=== PATIENT | female | born 1985 | race African-American/Black ===

== ENCOUNTER 2018-05-27 00:33 | Emergency (ER) | payer MEDICAID ==
[2018-05-27] MEDS ORDERED: LIDOCAINE 1%/EPINEPHRINE INJ 20 ML VIAL ONE (00:40)
[2018-05-27] MEDS ORDERED: LIDOCAINE 1%/EPINEPHRINE INJ 20 ML VIAL INJ ONE (01:19)
[2018-05-27] MEDS ORDERED: MORPHINE SULFATE IR 15 MG TABLET PO ONE (01:23)
[2018-05-27] MEDS ORDERED: ACETAMINOPHEN 325 MG TABLET PO ONE (01:23)
[2018-05-27] MEDS ORDERED: IBUPROFEN 600 MG TABLET PO ONE (01:23)
[2018-05-27] MEDS ORDERED: DIPH/PERTUSS(ACELL)/TETANUS VAC/PF 0.5 ML SYR (>=10YO) IM ONE (01:25)
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
[2018-05-27 02:30] VITALS: BP 132/68
== END 2018-05-27 02:34 | disposition home or self-care (01) ==
LOC: EDBD → ER 00:33
DX: S51.811A Laceration without foreign body of right forearm, initial encounter (principal); X99.9XXA Assault by unspecified sharp object, initial encounter; Z23 Encounter for immunization
CPT/HCPCS: 99283; 90471; 90715; 12002; J3490 ×3

== ENCOUNTER 2018-05-30 11:07 | Emergency (ER) | payer MEDICAID ==
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
[2018-05-30 12:06] VITALS: BP 132/70
== END 2018-05-30 12:05 | disposition home or self-care (01) ==
LOC: ER 11:07
DX: S61.511D Laceration without foreign body of right wrist, subsequent encounter (principal); W45.8XXD Other foreign body or object entering through skin, subsequent encounter; F17.210 Nicotine dependence, cigarettes, uncomplicated; Z71.6 Tobacco abuse counseling
CPT/HCPCS: 99283; 99406

== ENCOUNTER 2018-09-22 08:49 | Emergency (ER) | payer MEDICAID ==
--- NOTE | 2018-09-22 10:36 | RADIOLOGY REPORT (SQ) ---
EXAM DESCRIPTION: U/S EXTREMITY NONVASCULAR LTD COMPLETED DATE/TIME: 09/22/2018 10:04 am REASON FOR STUDY: Lump on right arm COMPARISON: None. TECHNIQUE: Dynamic and static grayscale images acquired of the localized site of clinical concern an d recorded on PACS. Additional selected color Doppler and spectral images recorded. SITE OF CONCERN: Right arm LIMITATIONS: None. FINDINGS: SKIN AND SUBCUTANEOUS TISSUES: There is a hypoechoic subcutaneous area with no capsule. M easures 0.9 x 1.8 x 0.7 cm. Echogenic linear focus suggesting possible foreign body. DEEP SOFT TISSUES/MUSCLES: No masses. No fluid collections. No edema. VASCULAR: No increased or decreased vascularity. No occlusions. OTHER: No other significant finding. IMPRESSION: Subcutaneous seroma/hematoma/abscess likely containing foreign body. TECHNICAL DOCUMENTATION: JOB ID: [id number] [employer]- All Rights Reserved Reading location - IP/workstation name: [email or web address]
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
[2018-09-22 11:11] VITALS: BP 113/61
== END 2018-09-22 11:11 | disposition home or self-care (01) ==
LOC: ER 08:49
DX: R22.31 Localized swelling, mass and lump, right upper limb (principal); F17.210 Nicotine dependence, cigarettes, uncomplicated
CPT/HCPCS: 76882; 99283; 99406

== ENCOUNTER 2019-04-16 11:45 | Emergency (ER) | payer MEDICAID ==
[2019-04-16] MEDS ORDERED: LIDOCAINE 1% INJ-PF (10 MG/ML) 30 ML SDV INJ ONE (12:28)
[2019-04-16] MEDS ORDERED: CEFTRIAXONE INJ 1000 MG VIAL IM ONE (12:28)
--- NOTE | 2019-04-16 12:34 | ER Document Report ---
HPI - HPI Time Seen by Provider: 04/16/19 12:10 Pain Level: 3 Notes: -year-old female resents the ED for evaluation of a cyst to the left orbital region that started approximately 2 weeks ago, patient has been applying warm compress to area a couple times has noticed some reduction, patient states she did have a cyst below her left eye approximately a month ago, applied heat resolved. Not tried any [id number] medications, has not seen a medical provider for this issue or an eye doctor for this issue. Denies fevers, chills, chest pain,palpitations, shortness of breath, dyspnea, nausea, vomiting, diarrhea, abdominal pain, hematuria,blurred vision, double vision, loss of vision, speech changes, LH, dizziness, syncope, headaches, wheezing, ST, URI, neck pain, weakness, bowel or bladder dysfunction, saddle anesthesia, numbness or tingling in bilateral upper or lower extremities equally, muscle paralysis, weakness in bilateral upper or lower extremities equally or rash. - EENT EENT: REPORTS: Eye problems - cyst left eye - REPRODUCTIVE Reproductive: DENIES: : Past Medical History - General Information source: Patient - Social History Smoking Status: Current Every Day Smoker Frequency of alcohol use: Social Drug Abuse: None Family History: Reviewed & Not Pertinent Patient has suicidal ideation: No Patient has homicidal ideation: No Pulmonary Medical History: Reports: Hx Bronchitis, Hx Pneumonia Renal/ Medical History: Denies: Hx Peritoneal Dialysis Musculoskeletal Medical History: Reports Hx Musculoskeletal Trauma - shoulder injury Skin Medical History: Reports Hx MRSA Psychiatric Medical History: Reports: Hx Depression Past Surgical History: Reports: Hx Abdominal Surgery - abdo hernia, Hx Breast Surgery - lymph node removed from breast, Hx Umbilical Hernia - AGE 12 Y.O. - Immunizations Immunizations up to date: Yes Hx Diphtheria, Pertussis, Tetanus Vaccination: Yes - 05/18 Hx Pneumococcal Vaccination: 10/01/00 Vertical Provider Document - CONSTITUTIONAL Agree With Documented VS: Yes Notes: PHYSICAL EXAMINATION: GENERAL: Well-appearing, well-nourished and in no acute distress. HEAD: Atraumatic, normocephalic. EYES: Pupils equal round and reactive to light, extraocular movements intact, conjunctiva are normal. PERRLA. ENT: Nares patent, oropharynx clear without exudates. Moist mucous membranes. NECK: Normal range of motion, supple without lymphadenopathy LUNGS: Breath sounds clear to auscultation bilaterally and equal. No wheezes rales or rhonchi. HEART: Regular rate and rhythm without murmurs ABDOMEN: Soft, nontender, nondistended abdomen. No guarding, no rebound. No masses appreciated. Musculoskeletal: Normal range of motion, no pitting or edema. No cyanosis. NEUROLOGICAL: Cranial nerves grossly intact. Normal speech, normal gait. Normal sensory, motor exams PSYCH: Normal mood, normal affect. SKIN: Warm, Dry, normal turgor, no rashes or lesions noted. Left lateral aspect orbital area with induration, scant erythema approximately 0.5 cm x 0.5 cm without surrounding erythema induration phlebitis. - INFECTION CONTROL TRAVEL OUTSIDE OF THE [place] IN LAST 30 DAYS: No Course - Re-evaluation Re-evalutation: 04/16/19 13:17 33-year-old female afebrile vital stable no distress, for evaluation of cyst on face, denies any blurred vision double vision loss of vision, visual acuity is normal, normal eye exam, 0.5 cm x 0.5 cm to lateral aspect of eye. Patient given 1 g Rocephin IM and started on oral clindamycin, referral given to quality process auditor for follow-up tomorrow. Advised to apply heat 20 minutes on 20 minutes off several times a day. after performing a Medical Screening Examination, I estimate there is LOW risk for a RETAINED CORNEAL or LID FOREIGN BODY, DEEP SPACE INFECTION (e.g., ORBITAL CELLULITIS OR ABSCESS), ACUTE GLAUCOMA, PENETRATING GLOBE INJURY, RETINAL DETACHMENT, or MENINGITIS thus I consider the discharge disposition reasonable. I have reevaluated this patient multiple times and no significant life threatening changes are noted. Also, there is no evidence or peritonitis, sepsis, or toxicity. The patient and I have discussed the diagnosis and risks, and we agree with discharging home with outpatient follow-up with the understanding that symptoms and presentations can change. We also discussed returning to the Emergency Department immediately if new or worsening symptoms occur. We have discussed the symptoms which are most concerning (e.g., changing or worsening pain, vision changes, neck stiffness or fever) that necessitate immediate return. Discharge - Discharge Clinical Impression: Cellulitis, Cyst of face Condition: Stable Disposition: HOME, SELF-CARE Instructions: Cellulitis ([facility]) Additional Instructions: Cellulitis You have an infection of your skin and underlying soft tissues called cellulitis. This is due to bacteria, which can enter through any break in the skin, or even through an irritated hair follicle. Untreated, cellulitis will usually worsen. Antibiotics are required. Usually, warm packs or warm soaks, and elevation of the infected area are recommended. You should start getting better within 24 to 36 hours. Most infections respond quickly to the right medication. Follow-up care is important, however, to check for abscess (boil) formation, unsuspected foreign body, or resistant infection. If you develop fever, chills, or if the area of infection is becoming rapidly more swollen or painful, call the doctor at once. Follow up with quality process auditor tomorrow. you were given 1g rocephin today and started on clindamycin today. apply heat 20 minutes and 20 minutes off several times a day. Eye Injury You have been evaluated for an eye injury or problem. At this time no serious, vision-threatening problem could be found. If an infection is suspected or to prevent an infection, antibiotics drops may be prescribed. Pain medication may be required. Don't drive or operate machinery until you have the use of both your eyes. Call the doctor or return at once if you develop severe pain, decreasing vision, eye swelling, or pus drainage. [facility] Address: [address] [place] [address] , [place] [address] Return immediately for any new or worsening symptoms. Follow up with primary care provider, call tomorrow to make followup appointment. Prescriptions: Clindamycin HCl 300 mg PO Q6H #28 capsule Fluconazole [Diflucan] 150 mg PO ONCE PRN #1 tablet PRN Reason: Forms: Return to Work Referrals: MICHA BOOKER DO [ACTIVE STAFF] - Follow up tomorrow XU GONSALEZ MD [ACTIVE STAFF] - Follow up in 3-5 days
== END 2019-04-16 13:03 | disposition home or self-care (01) ==
LOC: ER 11:45
DX: L03.211 Cellulitis of face (principal); L72.8 Other follicular cysts of the skin and subcutaneous tissue; F17.200 Nicotine dependence, unspecified, uncomplicated; Z86.14 Personal history of Methicillin resistant Staphylococcus aureus infection
CPT/HCPCS: 99283; 96372; J3490; J0696

== ENCOUNTER 2019-11-11 16:27 | Emergency (ER) | payer MEDICAID ==
[2019-11-11] MEDS ORDERED: IPRATROPIUM/ALBUTEROL 0.5-2.5 MG/3 ML AMPUL NEB ONE (17:51)
--- NOTE | 2019-11-11 17:55 | ER Document Report ---
HPI - HPI Patient complains to provider of: cough, body chills Time Seen by Provider: 11/11/19 17:44 Onset: Other - sunday Onset/Duration: Sudden Quality of pain: Achy Pain Level: 3 Context: 34-year-old female with history of bronchitis pneumonia presents to the emergency department with runny nose sneezing that started on Sunday. She reports symptoms continued on Sunday. On Sunday she started having body aches chills. Reports chest feels tight. Denies fever and diarrhea and vomiting. Reports children were recently diagnosed with the flu. Patient reports she is eating and drinking voiding and bowel movement as normal although she cannot eat heavy foods. She reports meat loaf pizza things like that make her nauseated. She is able to drink soups. Patient reports she usually smokes a pack cigarettes a day but has decreased recently. Associated Symptoms: Body/muscle aches, Nonproductive cough Exacerbated by: Denies Relieved by: Denies Similar symptoms previously: No Recently seen / treated by doctor: No - CONSTITUTIONAL Constitutional: REPORTS: Fever, Chills - EENT EENT: REPORTS: Sore Throat - RESPIRATORY Respiratory: REPORTS: Coughing - REPRODUCTIVE Reproductive: DENIES: : Past Medical History - General Information source: Patient - Social History Smoking Status: Current Every Day Smoker Cigarette use (# per day): Yes Chew tobacco use (# tins/day): No Frequency of alcohol use: Occasional Drug Abuse: None Lives with: Family Family History: Reviewed & Not Pertinent Patient has suicidal ideation: No Patient has homicidal ideation: No Pulmonary Medical History: Reports: Hx Bronchitis, Hx Pneumonia Renal/ Medical History: Denies: Hx Peritoneal Dialysis Musculoskeletal Medical History: Reports Hx Musculoskeletal Trauma - shoulder injury Skin Medical History: Reports Hx MRSA Psychiatric Medical History: Reports: Hx Depression Past Surgical History: Reports: Hx Abdominal Surgery - abdo hernia, Hx Breast Surgery - lymph node removed from breast, Hx Umbilical Hernia - AGE 12 Y.O. - Immunizations Immunizations up to date: Yes Hx Diphtheria, Pertussis, Tetanus Vaccination: Yes - 05/18 Hx Pneumococcal Vaccination: 10/01/00 Vertical Provider Document - CONSTITUTIONAL Agree With Documented VS: Yes Exam Limitations: No Limitations General Appearance: WD/WN, No Apparent Distress - INFECTION CONTROL TRAVEL OUTSIDE OF THE [place] IN LAST 30 DAYS: No - HEENT HEENT: Atraumatic, Normal ENT Exam, Normocephalic. negative: Conjuctival Injection, Pharyngeal Erythema, Tympanic Membrane Red, Tympanic Membrane Bulging - NECK Neck: Normal Inspection, Supple. negative: Lymphadenopathy-Left, Lymphadenopathy-Right - RESPIRATORY Respiratory: Breath Sounds Normal, No Respiratory Distress - CARDIOVASCULAR Cardiovascular: Regular Rate, Regular Rhythm - GI/ABDOMEN Gastrointestinal: Abdomen Non-Tender - MUSCULOSKELETAL/EXTREMETIES Musculoskeletal/Extremeties: MABASILIA, FROM - NEURO Level of Consciousness: Awake, Alert, Appropriate Motor/Sensory: No Motor Deficit - DERM Integumentary: Warm, Dry, No Rash Course - Re-evaluation Re-evalutation: 11/11/19 18:40 Chest X-Ray 11/11/19 17:51 IMPRESSION: NO ACUTE RADIOGRAPHIC FINDING IN THE CHEST. 11/11/19 19:01 Chest x-ray negative. Patient reports she feels better after the breathing treatment. She does have an inhaler at home. She was instructed to use inhaler as prescribed. Good handwashing, push fluids. Monitor her breathing. Quit smoking she was also instructed to return for concerns. She verbalized understanding to all instructions. Respiratory rate even unlabored no retractions no wheeze. - Vital Signs Vital signs: Temp Pulse Resp BP Pulse Ox 99.3 F 99 20 133/66 H 99 11/11/19 17:02 11/11/19 17:02 11/11/19 17:02 11/11/19 17:02 11/11/19 17:02 - Diagnostic Test Radiology reviewed: Image reviewed, Reports reviewed Discharge - Discharge Clinical Impression: Flu-like symptoms Condition: Stable Disposition: HOME, SELF-CARE Instructions: Acetaminophen Additional Instructions: *You have been evaluated for flulike symptoms *Your chest x-ray was negative for pneumonia *Increase fluid intake as discussed *Monitor your temperature, take Tylenol as indicated *Follow up with a primary care provider within 1 week for recheck *Return to ED for worsening condition, changes, needs Forms: Smoking Cessation Education
--- NOTE | 2019-11-11 18:10 | RADIOLOGY REPORT (SQ) ---
EXAM DESCRIPTION: CHEST 2 VIEWS COMPLETED DATE/TIME: 11/11/2019 6:04 pm REASON FOR STUDY: cough COMPARISON: 03/04/2017 EXAM PARAMETERS: NUMBER OF VIEWS: two views TECHNIQUE: Digital Frontal and Lateral radiographic views of the chest acquired. RADIATION DOSE: NA LIMITATIONS: none FINDINGS: LUNGS AND PLEURA: No opacities, masses or pneumothorax. No pleural effusion. MEDIASTINUM AND HILAR STRUCTURES: No masses or contour abnormalities. HEART AND VASCULAR STRUCTURES: Heart normal size. No evidence for failure. BONES: No acute findings. HARDWARE: None in the chest. OTHER: No other significant finding. IMPRESSION: NO ACUTE RADIOGRAPHIC FINDING IN THE CHEST. TECHNICAL DOCUMENTATION: JOB ID: [id number] 2010 [employer]- All Rights Reserved Reading location - IP/workstation name: [email or web address]
[2019-11-11 19:27] VITALS: BP 109/65
== END 2019-11-11 19:38 | disposition home or self-care (01) ==
LOC: ER 16:27
DX: R05 Cough (principal); R09.89 Other specified symptoms and signs involving the circulatory and respiratory systems; R06.7 Sneezing; R07.89 Other chest pain; M79.10 Myalgia, unspecified site; R50.9 Fever, unspecified; J02.9 Acute pharyngitis, unspecified; F17.210 Nicotine dependence, cigarettes, uncomplicated; Z20.828 Contact with and (suspected) exposure to other viral communicable diseases; Z87.01 Personal history of pneumonia (recurrent)
CPT/HCPCS: 71046; 94640; 99283; J7620

== ENCOUNTER 2019-12-19 21:53 | Emergency (ER) | payer MEDICAID, OTHER ==
[2019-12-19] MEDS ORDERED: PROMETHAZINE HCL 25 MG TABLET PO ONE (23:45)
[2019-12-19] MEDS ORDERED: TETANUS/DIPHTHERIA TOX-ADULT 0.5 ML SYR (>=7YO) IM ONE (23:45)
[2019-12-19] MEDS ORDERED: METRONIDAZOLE 500 MG TABLET PO ONE (23:45)
[2019-12-19] MEDS ORDERED: LIDOCAINE 1% INJ-PF (10 MG/ML) 30 ML SDV INJ ONE (23:45)
[2019-12-19] MEDS ORDERED: AZITHROMYCIN 250 MG TABLET PO ONE (23:45)
[2019-12-19] MEDS ORDERED: CEFTRIAXONE INJ 250 MG VIAL IM ONE (23:45)
[2019-12-20 00:56] LABS: ABSOLUTE EOSINOPHILS # (AUTO) 0.1 10^3/uL (0.0-0.6); ABSOLUTE MONOCYTES (AUTO) 0.4 10^3/uL (0.1-1.4); ABSOLUTE NEUT (AUTO) 3.7 10^3/uL (1.7-8.2); BASOPHILS % (AUTO) 0.5 % (0-2); EOSINOPHILS % (AUTO) 0.8 % (0-6); HEMATOCRIT 40.7 % (36.0-47.0); HEMOGLOBIN 13.5 g/dL (12.0-15.5); LYMPHOCYTES % (AUTO) 32.8 % (13-45); MEAN CORPUSCULAR HEMOGLOBIN 28.2 pg (27.0-33.4); MEAN CORPUSCULAR HGB CONC 33.3 g/dL (32.0-36.0); MEAN CORPUSCULAR VOLUME 85 fl (80-97); MONOCYTES % (AUTO) 6.6 % (3-13); PLATELET COUNT 455 10^3/uL (150-450); RED BLOOD COUNT 4.79 10^6/uL (3.72-5.28); RED CELL DISTRIBUTION WIDTH 14.7 % (11.5-14.0); SEGMENTED NEUTROPHILS % (AUTO) 59.3 % (42-78); TOTAL CELLS COUNTED % (AUTO) 100 %; WHITE BLOOD COUNT 6.2 10^3/uL (4.0-10.5)
[2019-12-20 01:03] LABS: APPEARANCE,URINE CLEAR; BILIRUBIN,URINE NEGATIVE (NEGATIVE); COLOR,URINE YELLOW; GLUCOSE, URINE NEGATIVE (NEGATIVE); KETONES,URINE NEGATIVE (NEGATIVE); LEUKOCYTE ESTERASE,URINE NEGATIVE (NEGATIVE); NITRITE,URINE NEGATIVE (NEGATIVE); PROTEIN,URINE NEGATIVE (NEGATIVE); UROBILINOGEN,URINE NEGATIVE mg/dL (<2.0)
[2019-12-20 01:24] LABS: ALBUMIN 4.9 g/dL (3.5-5.0); ALKALINE PHOSPHATASE 56 U/L (38-126); ANION GAP 8 (5-19); ASPARTATE AMINO TRANSFERASE 23 U/L (14-36); BILIRUBIN,TOTAL 0.6 mg/dL (0.2-1.3); BLOOD UREA NITROGEN 8 mg/dL (7-20); CALCIUM 9.8 mg/dL (8.4-10.2); CARBON DIOXIDE 28 mmol/L (22-30); CHLORIDE 104 mmol/L (98-107); GLUCOSE 98 mg/dL (75-110); POTASSIUM 4.2 mmol/L (3.6-5.0); TOTAL PROTEIN 8.6 g/dL (6.3-8.2)
[2019-12-20] MEDS ORDERED: PROMETHAZINE HCL 25 MG TABLET ONE (01:59)
[2019-12-20] MEDS ORDERED: LIDOCAINE 1% INJ-PF (10 MG/ML) 30 ML SDV ONE (02:00)
[2019-12-20] MEDS ORDERED: AZITHROMYCIN 250 MG TABLET ONE (02:00)
[2019-12-20] MEDS ORDERED: CEFTRIAXONE INJ 1000 MG VIAL ONE (02:00)
[2019-12-20] MEDS ORDERED: METRONIDAZOLE 500 MG TABLET PO ONE (02:01)
[2019-12-20] MEDS ORDERED: TETANUS/DIPHTHERIA TOX-ADULT 0.5 ML SYR (>=7YO) IM ONE (02:02)
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
[2019-12-20] MEDS ORDERED: EMTRICITABINE/TENOFOVIR 200-300 MG TAB (3 TAB/ER DISP) PO PRN (02:14)
[2019-12-20] MEDS ORDERED: RALTEGRAVIR 400 MG TAB (6 TAB/ER DISP) PO PRN (02:14)
[2019-12-20 02:22] LABS: BACTERIA (WET MOUNT) 3+ BACTERIA SEEN; EPITHELIALS (WET MOUNT) 3+ EPITHELIALS SEEN; RBCS (WET MOUNT) NO RBCS SEEN; T.VAGINALIS (WET MOUNT) NO TRICHOMONAS SEEN; WBCS (WET MOUNT) 1+ WBCS SEEN; YEAST (WET MOUNT) NO YEAST SEEN
[2019-12-20] MEDS ORDERED: ONDANSETRON 4 MG TAB.RAPDIS PO ONE (02:49)
[2019-12-20 04:41] VITALS: BP 119/71
[2019-12-21 07:36] LABS: HEPATITS B SURFACE ANTIGEN Negative (Negative)
[2019-12-21 13:10] LABS: HEPATITIS C VIRUS ANTIBODY <0.1 s/co ratio (0.0-0.9)
== END 2019-12-20 04:40 | disposition home or self-care (01) ==
LOC: ER 21:53
DX: T76.21XA Adult sexual abuse, suspected, initial encounter (principal); X58.XXXA Exposure to other specified factors, initial encounter; F17.200 Nicotine dependence, unspecified, uncomplicated; Z20.6 Contact with and (suspected) exposure to human immunodeficiency virus [HIV]; Z23 Encounter for immunization
CPT/HCPCS: 99284; 96372; 90471; 36415; 87210; 85025; 81025; 86592; 80053; 81001; 86701; 80074; 90714; Q0144; S0119; J3490 ×3; J0696

== ENCOUNTER 2020-03-05 11:58 | Emergency (ER) | payer MEDICAID, OTHER ==
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
--- NOTE | 2020-03-05 13:58 | RADIOLOGY REPORT (SQ) ---
EXAM DESCRIPTION: CHEST SINGLE VIEW IMAGES COMPLETED DATE/TIME: 03/05/2020 1:43 pm REASON FOR STUDY: sob COMPARISON: PA and lateral views of the chest from 11/11/2019. EXAM PARAMETERS: NUMBER OF VIEWS: One view. TECHNIQUE: An AP view of the chest was obtained. RADIATION DOSE: NA LIMITATIONS: None. FINDINGS: LUNGS AND PLEURA: No consolidation, pleural effusion or pneumothorax. MEDIASTINUM AND HILAR STRUCTURES: No mediastinal or hilar contour abnormality. HEART AND VASCULAR STRUCTURES: The cardiac silhouette and pulmonary vasculature are within normal goins its. BONES: No acute findings. HARDWARE: None in the chest. OTHER: No other finding. IMPRESSION: No acute cardiopulmonary process. TECHNICAL DOCUMENTATION: JOB ID: [id number] 2010 [employer]- All Rights Reserved Reading location - IP/workstation name: [email or web address]
[2020-03-05 18:53] VITALS: BP 121/67
== END 2020-03-05 18:44 | disposition home or self-care (01) ==
LOC: ER 11:58
DX: R06.02 Shortness of breath (principal); R42 Dizziness and giddiness; R05 Cough; Z87.01 Personal history of pneumonia (recurrent); Z77.098 Contact with and (suspected) exposure to other hazardous, chiefly nonmedicinal, chemicals
CPT/HCPCS: 71045; 99284

== ENCOUNTER 2020-06-17 21:43 | Emergency (ER) | payer MEDICAID ==
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
--- NOTE | 2020-06-18 01:16 | RADIOLOGY REPORT (SQ) ---
Ultrasound of the pelvis: 06/18/2020 12:13 AM CDT HISTORY: 35-year-old patient with vaginal bleeding. TECHNIQUE: Multiple grayscale and color Doppler images of the pelvis were obtained transabdominally. COMPARISON: None available FINDINGS: The uterus measures 8.0 x 5.0 x 4.4 cm. The endometrium measures 8-9 mm in thickness. No myometrial mass is seen. The right ovary measures 4.7 x 3.0 x 3.4 cm. The left ovary measures 3.6 x 2.0 x 2.3 cm. There is a probable physiologic cysts within the right ovary measuring up to 3.8 cm. Normal arterial waveforms were obtained from both ovaries. No free intraperitoneal fluid is seen within the posterior cul-de-sac. IMPRESSION: No sonographic abnormality is seen within the pelvis.
[2020-06-18 03:11] LABS: ABSOLUTE EOSINOPHILS # (AUTO) 0.1 10^3/uL (0.0-0.6); ABSOLUTE MONOCYTES (AUTO) 0.4 10^3/uL (0.1-1.4); ABSOLUTE NEUT (AUTO) 2.8 10^3/uL (1.7-8.2); BASOPHILS % (AUTO) 0.7 % (0-2); EOSINOPHILS % (AUTO) 1.2 % (0-6); HEMATOCRIT 37.2 % (36.0-47.0); HEMOGLOBIN 12.6 g/dL (12.0-15.5); MEAN CORPUSCULAR HEMOGLOBIN 28.6 pg (27.0-33.4); MEAN CORPUSCULAR HGB CONC 33.9 g/dL (32.0-36.0); MEAN CORPUSCULAR VOLUME 84 fl (80-97); PLATELET COUNT 350 10^3/uL (150-450); RED BLOOD COUNT 4.41 10^6/uL (3.72-5.28); RED CELL DISTRIBUTION WIDTH 14.7 % (11.5-14.0); SEGMENTED NEUTROPHILS % (AUTO) 44.1 % (42-78); TOTAL CELLS COUNTED % (AUTO) 100 %; WHITE BLOOD COUNT 6.4 10^3/uL (4.0-10.5)
[2020-06-18 03:25] LABS: ALBUMIN 4.4 g/dL (3.5-5.0); ALKALINE PHOSPHATASE 41 U/L (38-126); ANION GAP 9 (5-19); ASPARTATE AMINO TRANSFERASE 23 U/L (14-36); BILIRUBIN,DIRECT 0.3 mg/dL (0.0-0.4); BILIRUBIN,TOTAL 0.4 mg/dL (0.2-1.3); BLOOD UREA NITROGEN 9 mg/dL (7-20); CALCIUM 9.4 mg/dL (8.4-10.2); CARBON DIOXIDE 22 mmol/L (22-30); CHLORIDE 106 mmol/L (98-107); GLUCOSE 141 mg/dL (75-110); POTASSIUM 3.9 mmol/L (3.6-5.0); TOTAL PROTEIN 7.4 g/dL (6.3-8.2)
[2020-06-18 03:29] LABS: APPEARANCE,URINE CLEAR; BILIRUBIN,URINE NEGATIVE (NEGATIVE); COLOR,URINE YELLOW; GLUCOSE, URINE NEGATIVE (NEGATIVE); KETONES,URINE NEGATIVE (NEGATIVE); LEUKOCYTE ESTERASE,URINE NEGATIVE (NEGATIVE); NITRITE,URINE NEGATIVE (NEGATIVE); PROTEIN,URINE NEGATIVE (NEGATIVE); URINE SPECIFIC GRAVITY 1.015; UROBILINOGEN,URINE NEGATIVE mg/dL (<2.0)
[2020-06-18] MEDS ORDERED: KETOROLAC TROMETHAMINE 60 MG/2 ML SDV IM ONE (08:23)
--- NOTE | 2020-06-18 08:55 | ER Document Report ---
Entered by VIKA BOJORQUEZ SCRIBE 06/18/20 0752 Acting as scribe for:GUILLERMO GARDNER MD ED General - General Chief Complaint: Pelvic Pain Stated Complaint: PELVIC PAIN Time Seen by Provider: 06/17/20 22:18 Mode of Arrival: Ambulatory Information source: Patient Notes: This 35 year old female patient presents to the emergency department today with complaints of vaginal discomfort. Patient states she had her Nexplanon changed around x4 months ago [facility] and reports intermittent clotting or bleeding since. Patient reports a white vaginal discharge x2 days ago and denies any fever or chills. Patient states her last appointment at the [facility] was x1 month ago and was told to visit the ED if she continued to have pain or bleeding. TRAVEL OUTSIDE OF THE [place] IN LAST 30 DAYS: No - Related Data Allergies/Adverse Reactions: No Known Allergies Allergy (Verified 11/11/19 17:42) Past Medical History - General Information source: Patient - Social History Smoking Status: Current Every Day Smoker Cigarette use (# per day): Yes Frequency of alcohol use: None Family History: Reviewed & Not Pertinent Patient has homicidal ideation: No Pulmonary Medical History: Reports: Hx Bronchitis, Hx Pneumonia Musculoskeletal Medical History: Reports Hx Musculoskeletal Trauma - shoulder injury Skin Medical History: Reports Hx MRSA Psychiatric Medical History: Reports: Hx Depression Past Surgical History: Reports: Hx Abdominal Surgery - abd hernia, Hx Breast Surgery - lymph node removed from breast, Hx Umbilical Hernia - AGE 12 Y.O. - Immunizations Immunizations up to date: Yes Hx Diphtheria, Pertussis, Tetanus Vaccination: Yes - 05/18 Hx Pneumococcal Vaccination: 10/01/00 Review of Systems - Review of Systems Constitutional: See HPI. denies: Chills, Fever EENT: No symptoms reported Cardiovascular: No symptoms reported Respiratory: No symptoms reported Gastrointestinal: No symptoms reported Genitourinary: No symptoms reported Female Genitourinary: See HPI, Vaginal discharge, Vaginal bleeding, Other - vaginal pain Musculoskeletal: No symptoms reported Skin: No symptoms reported Hematologic/Lymphatic: No symptoms reported Neurological/Psychological: No symptoms reported -: Yes All other systems reviewed and negative Physical Exam - Vital signs Vitals: Temp Pulse Resp BP Pulse Ox 98.8 F 98 18 130/69 H 99 06/17/20 22:00 06/17/20 22:00 06/17/20 22:00 06/17/20 22:00 06/17/20 22:00 - General General appearance: Appears well, Alert - HEENT Head: Normocephalic, Atraumatic Eyes: Normal Pupils: PERRL - Respiratory Respiratory status: No respiratory distress Chest status: Nontender Breath sounds: Normal Chest palpation: Normal - Cardiovascular Rhythm: Regular Heart sounds: Normal auscultation Murmur: No - Abdominal Inspection: Obese Distension: No distension Bowel sounds: Normal Tenderness: Nontender - Extremities General upper extremity: Normal inspection. No: Edema General lower extremity: Normal inspection. No: Edema - Neurological Neuro grossly intact: Yes Cognition: Normal Orientation: AAOx4 Eddie Coma Scale Eye Opening: Spontaneous Eddie Coma Scale Verbal: Oriented Eddie Coma Scale Motor: Obeys Commands Eddie Coma Scale Total: 15 Speech: Normal - Psychological Associated symptoms: Normal affect, Normal mood - Skin Skin Temperature: Warm Skin Moisture: Dry Skin Color: Normal Course - Re-evaluation Re-evalutation: 06/18/20 08:49 Patient resting comfortably not showing signs of distress at this time. - Vital Signs Vital signs: Temp Pulse Resp BP Pulse Ox 98.1 F 74 20 114/65 99 06/18/20 05:38 06/18/20 05:38 06/18/20 05:38 06/18/20 05:38 06/18/20 05:38 06/18/20 08:50 Vital signs stable. - Laboratory Result Diagrams: 06/18/20 02:36 06/18/20 02:36 Laboratory results interpreted by me: 06/18/20 06/18/20 02:36 02:36 RDW 14.7 H Lymph % (Auto) 47.0 H Sodium 136.9 L Glucose 141 H 06/18/20 08:50 Blood sugar 141. Patient reports she does not have any knowledge of having glucose metabolism problems. Advised patient to follow-up with her primary regarding further work-up of glucose metabolism. - Diagnostic Test Radiology reviewed: Image reviewed, Reports reviewed Radiology results interpreted by me: 06/18/20 08:50 Ultrasound of pelvis shows no acute abnormality noted. Patient does have a cyst on the right ovary. Pelvis Ultrasound 06/17/20 22:23 IMPRESSION: No sonographic abnormality is seen within the pelvis. Discharge - Discharge Clinical Impression: Pelvic pain, Right ovarian cyst Condition: Stable Disposition: HOME, SELF-CARE Instructions: Pelvic Pain ([facility]) Additional Instructions: Ovarian Cyst Your examination shows the presence of an ovarian cyst. This is a ball of fluid attached to the ovary. Ovarian cysts in women of child-bearing age are usually innocent. However, the cyst may cause pain when it grows or bursts. An innocent ovarian cyst will usually go away by itself. When the cyst becomes painful, you should rest. Pain medication may be required. Some women find a hot water bottle soothing. The pain usually resolves within one or two days. After menopause, an ovarian cyst may mean a tumor, and requires more aggressive evaluation -- usually surgery is recommended to remove or biopsy the cyst. A very large cyst requires evaluation at any age. Most cysts (even the innocent ones) require follow-up examination. Call the doctor or return at any time if the pain increases significantly, if you become faint, or if you experience vaginal bleeding. You also have an elevated glucose of 140 in your blood at this time. Do advise that you follow-up with your primary care physician for further evaluation of glucose metabolism. Prescriptions: Ibuprofen [Ibu] 800 mg PO TID PRN 7 Days #21 tablet PRN Reason: prn pain/swelling/fever Doxycycline Hyclate [Vibramycin 100 mg Tablet] 100 mg PO BID #20 tablet I personally performed the services described in the documentation, reviewed and edited the documentation which was dictated to the scribe in my presence, and it accurately records my words and actions.
[2020-06-18 09:15] VITALS: BP 114/62
== END 2020-06-18 09:19 | disposition home or self-care (01) ==
LOC: ER 21:43
DX: N83.201 Unspecified ovarian cyst, right side (principal); R10.2 Pelvic and perineal pain; E66.9 Obesity, unspecified; F17.210 Nicotine dependence, cigarettes, uncomplicated
CPT/HCPCS: 99284; 96372; 36415; 84703; 85025; 80053; 81001; 76856; 93976; J1885